=== PATIENT | female | born 1955 | race Caucasian/White ===

== ENCOUNTER → 2016-11-07 | Outpatient (CLI) | payer BC ==
[~2016-11-07] VITALS: Ht 157.5 cm; Wt 56.7 kg
[~2016-11-07] MED LIST: CALCIUM 500 MG1 EACH PO; FISH OIL300 MG PO; TURMERIC500 M1 PO; TYLENOL ARTHRI650 MG PO; VITAMIN D2000 UNI1 PO
== END | disposition home or self-care (01) ==
LOC: AMB 09:19
PROC: 0DBH8ZX Excision of Cecum, Via Natural or Artificial Opening Endoscopic, Diagnostic (ICD-10-PCS; principal; 2016-11-07)
DX: Z12.11 Encounter for screening for malignant neoplasm of colon (principal); D12.0 Benign neoplasm of cecum; K64.8 Other hemorrhoids; F41.9 Anxiety disorder, unspecified; Z83.3 Family history of diabetes mellitus; Z82.49 Family history of ischemic heart disease and other diseases of the circulatory system; Z87.891 Personal history of nicotine dependence; K21.9 Gastro-esophageal reflux disease without esophagitis
CPT/HCPCS: 88305; J2250; J3010